=== PATIENT | male | born 2000 | race Caucasian/White ===

== ENCOUNTER 2023-06-18 19:10 | Emergency (ER) | payer BC ==
[2023-06-18 19:49] LABS: BASOPHILS PERCENT AUTO 0.2 % (0.0-1.0); EOSINOPHILS PERCENT AUTO 0.2 % (0.0-6.0); HEMATOCRIT 40.2 % (42.0-52.0); HEMOGLOBIN 14.4 gm/dl (14.0-18.0); IMMATURE GRAN ABSOLUTE AUTO 0.01 K/mm3 (0.00-0.05); IMMATURE GRAN PERCENT AUTO 0.2 % (0.0-0.4); LYMPHOCYTES PERCENT AUTO 23.9 % (24.0-44.0); MEAN CORPUSCULAR HEMOGLOBIN 30.5 pg (28.0-32.0); MEAN CORPUSCULAR HGB CONC 35.8 g/dl (32.0-36.0); MEAN CORPUSCULAR VOLUME 85.2 fl (83.0-99.0); MEAN PLATELET VOLUME 11.3 fl (9.4-12.4); MONOCYTES ABSOLUTE AUTO 0.7 K/mm3 (0.0-0.8); MONOCYTES PERCENT AUTO 15.6 % (0.0-8.0); NEUTROPHILS ABSOLUTE AUTO 2.5 K/mm3 (1.8-7.7); NEUTROPHILS PERCENT AUTO 59.9 % (41.0-71.0); PLATELET COUNT,PLT 201 K/mm3 (150-400); RED BLOOD CELL COUNT 4.72 M/mm3 (4.52-5.90); WHITE BLOOD CELL COUNT,WBC 4.18 K/mm3 (3.9-11.3)
[2023-06-18 20:07] LABS: A/G RATIO 1.4 (1-2); ALBUMIN 4.1 g/dl (3.4-5.0); ANION GAP 14.8 (5-15); BILIRUBIN TOTAL 0.3 mg/dL (0.2-1.0); CALCIUM 9.2 mg/dL (8.5-10.1); CREATININE 1.1 mg/dL (0.7-1.3); EST CRCL DRUG DOSING (CG) 107.84 mL/min; MAGNESIUM 1.9 mg/dL (1.8-2.4); POTASSIUM,K 3.8 mEq/L (3.5-5.1); PROTEIN TOTAL,TP 7.1 g/dl (6.4-8.2)
[2023-06-18 20:14] LABS: CORONAVIRUS COVID-19 NAA NEGATIVE (NEGATIVE); INFLUENZA A NAA POSITIVE (NEGATIVE); RESPIRATORY SYNCYTIAL VIR NAA NEGATIVE (NEGATIVE)
[2023-06-18] MEDS: Oseltamivir 75 MG Cap PO ONE (21:06)
== END 2023-06-18 21:08 | disposition home or self-care (01) ==
LOC: JD.ED 19:10
DX: J10.1 Influenza due to other identified influenza virus with other respiratory manifestations (principal); R07.89 Other chest pain
CPT/HCPCS: 0241U; 36415; 80053; 83735; 85025; 86140; 87651; 99283; A9270

== ENCOUNTER 2024-04-12 15:04 | Emergency (ER) | payer BC ==
[2024-04-12] MEDS: Ketorolac 30 MG/ML SDV IM ONE (19:25)
[2024-04-12] MEDS: Penicillin V Potassium 500 MG Tab PO SCH (20:49)
== END 2024-04-12 20:51 | disposition home or self-care (01) ==
LOC: JD.ED 15:04
DX: S02.5XXB Fracture of tooth (traumatic), initial encounter for open fracture (principal); Z79.899 Other long term (current) drug therapy; W22.8XXA Striking against or struck by other objects, initial encounter
CPT/HCPCS: 64400; 70450; 70486; 96372; 99283; A9270; J1885